=== PATIENT | female | born 1955 | race African-American/Black ===

== ENCOUNTER 2023-06-12 13:08 | Emergency (ER) | payer MEDICAID, SELFPAY ==
[2023-06-12 13:18] VITALS: BP 170/85; PULSE 67; RESP 18; TEMP 36.6; O2SAT 99; BMI 26.6
--- NOTE | 2023-06-12 13:22 | ED.GENADULT ---
HPI - General Adult General Chief complaint: Headache Stated complaint: headache high bp Time Seen by Provider: 06/12/23 19:40 Source: patient and family (Son) Mode of arrival: ambulatory History of Present Illness HPI narrative: 67-year-old female who has recently arrived the [place] states and is brought in by her son with a history of hypertension and complaint of headache for the past 3 days, not sleeping well at night. Son also states that he does not think that the blood pressure medication is working as well as previously. Otherwise, there are no complaints of slurred speech, unsteady gait, facial asymmetry or weakness on 1 side of the body. Patient denies any use of chronic anticoagulation. She does report bilateral eye blurriness but unknown last evaluation by eye doctor. Related Data Previous Rx's ?Medication ?Instructions ?Recorded amiloride 5 mg tablet 10 mg (2 x 5 mg) PO DAILY #30 tabs 06/12/23 hydrochlorothiazide 25 mg tablet 25 mg PO DAILY #30 tabs 06/12/23 Allergies Allergy/AdvReac Type Severity Reaction Status Date / Time No Known Allergies Allergy Verified 06/12/23 13:23 Review of Systems Review of Systems: Pertinent positives and negatives as stated in HPI [facility] Past Medical History Source: nursing notes reviewed Social History Social History Smoked in Last 30 Days: No Use of substances other than those prescribed or required for medical reasons: No Advance Directives: No Advance Directives Information Provided: Yes Do you have a plan to hurt others: No Plan Physical Exam ED Vital Signs: Vital Signs - 24 hr 06/12/23 20:23 06/12/23 21:22 06/12/23 23:35 Temperature 97.8 F Pulse Rate 61 61 Respiratory Rate 17 18 Blood Pressure 168/101 H 168/106 H 153/94 H Pulse Oximetry 96 96 Oxygen Delivery Method Room Air Room Air 06/13/23 02:05 Temperature 98.2 F Pulse Rate 64 Respiratory Rate 18 Blood Pressure 120/70 Pulse Oximetry 98 Oxygen Delivery Method Room Air BMI result Body Mass Index 26.6 VITAL SIGNS: Reviewed. GENERAL: Well developed, well nourished, in no acute distress. HEAD: Normocephalic/atraumatic EYES: PERRLA, EOMI EARS: Ext canals without abnormality NOSE: Nares patent bilateral OROPHARYNX: no oral lesions noted, posterior pharynx clear NECK: Supple, no adenopathy LUNGS: Normal breath sounds. No adventitious sounds or accessory muscle use. SpO2<96> CARDIOVASCULAR: Regular rate and rhythm without noted murmurs, no JVD or lower extremity edema. ABDOMEN: Soft, non-tender, non-distended with bowel sounds. MUSCULOSKELETAL: No tenderness, deformities, or effusions noted on gross inspection. EXTREMITIES: No cyanosis, clubbing or edema. SKIN: Inspection of the skin reveals no rashes NEUROLOGIC: Alert and oriented x 4. Strength and sensation to light touch were grossly intact x 4, no facial asymmetry, no pronator drift, cranial nerves 2-12 are grossly intact. Course Course Course Narrative: RME performed by Mary Junior PA-C. Patient is a 67 year old assigned female at presenting to the emergency department with a headache and leg pain. Patient states that over the last few days she has had a headache and leg pain. Patient requesting HIV testing. Detailed physical exam and review of systems are deferred to the associate director of sales. Labs and swabs ordered. Patient placed back in the waiting room pending room availability and results. Reevaluation(s) Reevaluation #1: BP normal K 3.3 stable for DC Medications Administered Discontinued Medications Generic Name Dose Route Start Last Admin Trade Name Freq PRN Reason Stop Dose Admin Acetaminophen 975 mg 06/12/23 20:26 06/12/23 21:22 Acetaminophen 325 Mg Tablet PO 06/12/23 20:27 975 mg ONCE ONE Administration Amlodipine Besylate 5 mg 06/12/23 20:26 06/12/23 21:22 Amlodipine Besylate 5 Mg Tablet PO 06/12/23 20:27 5 mg ONCE ONE Administration Protocol Potassium Chloride 10 meq in 100 mls @ 100 mls/hr 06/12/23 19:45 06/13/23 00:30 Potassium Chloride/H20 IV 06/12/23 23:44 Infused Q1H KATHERYN Infusion Ibuprofen 400 mg 06/12/23 20:26 06/12/23 21:21 Ibuprofen 400 Mg Tablet PO 06/12/23 20:27 400 mg ONCE ONE Administration Potassium Chloride 60 meq 06/12/23 21:30 06/12/23 22:28 Potassium Chloride Packet 20 Meq Packet PO 06/12/23 21:31 60 meq ONCE ONE Administration Medical Decision Making Medical Decision Making MDM Narrative: 67-year-old female with history and clinical presentation, DDX: Generalized headache, no focal findings, no concern for intracranial hemorrhage, blood pressure noted to be elevated but suspect may be secondary to change in dietary access to sodium, patient does take amiloride and hydrochlorothiazide for her blood pressure. I reviewed all investigations and hematologic indices are negative for leukocytosis/anemia/thrombocytopenia. Chemistry indices are negative for SHEA but there is a noted low potassium-2.4 which will be repleted with 40 mEq via IV and 60 mEq orally as well as additional Norvasc for blood pressure control. Liver enzymes are within normal limits. I sensitivity troponin is detectable but not elevated and patient has no complaints of chest pain. Urinalysis is negative for UTI or hematuria. Viral illnesses negative for influenza/RSV/COVID-19. I have signed this patient out to Dr. Watts - follow-up BMP after potassium repletion. Differential Diagnosis Differential Diagnoses: The differential diagnosis associated with the presentation includes Please see the discussion above Admission/Observation Consideration of admission/observation: Escalation of care including admission/observation considered Please see the discussion above Lab Data [facility] Lab Attestation statement: I reviewed the patient's lab results. Please see the discussion above 06/12/23 14:09 06/13/23 00:48 Labs: Lab Results 06/12/23 06/12/23 06/13/23 Range/Units 14:09 14:15 00:48 WBC 5.2 (4.8-10.8) X10*3/uL RBC 4.80 (4.20-5.50) X10*6/uL Hgb 14.0 (12.0-16.0) g/dl Hct 40.4 (37.0-47.0) % MCV 84.2 (80.0-98.0) fL MCH 29.2 (27.0-33.0) pg MCHC 34.7 (31.0-35.0) g/dl RDW 12.4 (11.0-16.0) % Plt Count 216 (160-400) X10*3/uL MPV 10.7 (9.4-12.3) fL Immature Gran % (Auto) 0.2 (0.0-0.4) % Neut % (Auto) 28.9 L (45-73) % Lymph % (Auto) 61.1 H (20-40) % Foster % (Auto) 8.0 (2-11) % Eos % (Auto) 1.0 (0-4) % Baso % (Auto) 0.8 (0-2) % Lymph # (Auto) 3.2 (1.2-4.9) X10*3/uL Foster # (Auto) 0.4 (0.1-1.2) X10*3/uL Eos # (Auto) 0.1 (0.0-0.4) X10*3/uL Baso # (Auto) 0.0 (0.0-0.2) X10*3/uL Abs Immat Gran (auto) 0.01 (0.00-0.03) X10*3/uL Absolute Neuts (auto) 1.5 L (2.0-8.3) x10*3/uL Absolute Nucleated RBC 0.000 (0.0-0.012) X10*3/uL Nucleated RBC % (auto) 0.0 (0.0-0.2) /100WBC Smear Tech's Comments VERIFIED Sodium 140 (135-145) mmol/L Potassium 2.4 L* 3.3 D (3.3-5.1) mmol/L Chloride 99 (96-108) mmol/L Carbon Dioxide 30 H (22-29) mmol/L Anion Gap 13 (12-20) BUN 15 (9-16) mg/dL Creatinine 0.93 (0.5-1.4) mg/dL Estim Creat Clear Calc 67.1 Estimated GFR > 60 Random Glucose 130 H (60-115) mg/dL Calcium 11.0 H (8.4-10.2) mg/dL Magnesium 1.8 (1.6-2.6) mg/dL Total Bilirubin 0.9 (0.0-1.0) mg/dL AST 21 (5-31) U/L ALT 21 (0-31) U/L Alkaline Phosphatase 69 (39-117) U/L Troponin I High Sens 3.0 (<3.5-17.0) ng/L Total Protein 8.6 H (6.5-8.0) g/dL Albumin 4.6 (3.5-5.0) g/dL Urine Color Yellow Urine Appearance Clear Urine pH 7.0 (5.0-9.0) Ur Specific [place] <= 1.005 (1.005-1.025) Urine Protein Negative (Neg-Trace) mg/dL Urine Glucose (UA) Negative (Negative) mg/dL Urine Ketones Negative (Negative) mg/dL Urine Blood Negative (Negative) Urine Nitrite Negative (Negative) Ur Leukocyte Esterase Negative (Negative) HIV 1&2 Ab/P24 Ag 4thGn Reactive H (Nonreactive) Influenza Type A (PCR) NEGATIVE (Negative) Influenza Type B (PCR) NEGATIVE (Negative) RSV RNA Qual (PCR) NEGATIVE (Negative) SARS-CoV-2 RNA (RT-PCR) NEGATIVE (Negative) Independent Interpretation I performed an independent interpretation of an: EKG Interpretation: Normal sinus rhythm, HR-66, no STEMI, suspect LVH, CT/QRS/QTC is within normal limits. Chronic Conditions Patient?s care impacted by: Hypertension Critical Care Time Critical Care Time Critical Care Time: Yes Total Critical Care Time: 45 Attestation: I personally attest to this time spent taking care of the patient. Discharge Plan Discharge Clinical Impression: Headache, Hypertension, Hypokalemia Patient Disposition: Home, Self-Care Instructions: Potassium Content of Foods List (ED), Hypokalemia (ED), Low-Sodium Diet (ED), Hypertension (ED), General Headache (ED) Additional Instructions: Your blood pressure medication has been modified, you should follow-up with a primary care doctor in the next 3-4 days. Prescriptions: New amiloride 5 mg tablet 10 mg PO DAILY Qty: 30 0RF hydrochlorothiazide 25 mg tablet 25 mg PO DAILY Qty: 30 0RF Interventions: ED Discharge Assessment Last Done: 06/13/23 02:05 Discharge Date/Time: 06/13/23 01:27 Print Language: Pakistani
--- NOTE | 2023-06-12 13:25 | ECG_ITS ---
Test Reason : WEAKNESS Blood Pressure : / mmHG Vent. Rate : 066 BPM Atrial Rate : 066 BPM P-R Int : 188 ms QRS Dur : 078 ms QT Int : 378 ms P-R-T Axes : 058 -22 -20 degrees QTc Int : 396 ms Normal sinus rhythm Minimal voltage criteria for LVH, may be normal variant ( R in aVL ) T wave abnormality, consider anterior ischemia Abnormal ECG No previous ECGs available Referred By: Mary Junior Electronically Signed By:Jerzy Sebastian
[2023-06-12 14:21] LABS: Basophils Percent Auto 0.8 % (0-2); Eosinophils Absolute Auto 0.1 X10*3/uL (0.0-0.4); Hematocrit 40.4 % (37.0-47.0); Imm Gran Abs Auto 0.01 X10*3/uL (0.00-0.03); Imm Gran Pct Auto 0.2 % (0.0-0.4); Lymphocytes Absolute Auto 3.2 X10*3/uL (1.2-4.9); Lymphocytes Percent Auto 61.1 % (20-40); MANUAL DIFF FLAG SCAN; Mean Corpuscular HGB Conc 34.7 g/dl (31.0-35.0); Mean Corpuscular Hemoglobin 29.2 pg (27.0-33.0); Mean Corpuscular Volume 84.2 fL (80.0-98.0); Mean Platelet Volume 10.7 fL (9.4-12.3); Monocytes Absolute Auto 0.4 X10*3/uL (0.1-1.2); Neutrophils Absolute Auto 1.5 x10*3/uL (2.0-8.3); Neutrophils Percent Auto 28.9 % (45-73); Platelet Count 216 X10*3/uL (160-400); Red Cell Distribution Width 12.4 % (11.0-16.0); SCAN SMEAR FLAG 1; White Blood Count 5.2 X10*3/uL (4.8-10.8)
[2023-06-12 14:22] LABS: Appearance Urine Clear; Color Urine Yellow; Glucose Urine UA Negative (Negative); Leukocyte Esterase Urine Negative (Negative); Nitrite Urine Negative (Negative); Specific Gravity - Urine <= 1.005 (1.005-1.025); Urine Blood Negative (Negative); Urine Ketones Negative (Negative); Urine Protein Negative (Neg-Trace)
[2023-06-12 14:40] LABS: Alanine Aminotransferase 21 U/L (0-31); Albumin Level 4.6 g/dL (3.5-5.0); Alkaline Phosphatase 69 U/L (39-117); Anion Gap 13 (12-20); Aspartate Amino Transferase 21 U/L (5-31); Bilirubin Total 0.9 mg/dL (0.0-1.0); Blood Urea Nitrogen 15 mg/dL (9-16); Carbon Dioxide 30 mmol/L (22-29); Chloride 99 mmol/L (96-108); Creatinine Clr Calc Pharmacy 67.1; Estimated Glomerular Filt Rate > 60; Glucose Random 130 mg/dL (60-115); Magnesium 1.8 mg/dL (1.6-2.6); Potassium 2.4 mmol/L (3.3-5.1); Sodium 140 mmol/L (135-145); Total Protein 8.6 g/dL (6.5-8.0)
[2023-06-12 14:50] LABS: SLIDE REVIEW VERIFIED
[2023-06-12 15:14] LABS: Influenza A PCR NEGATIVE (Negative); Influenza B PCR NEGATIVE (Negative); Resp Syncy Virus RNA Qual PCR NEGATIVE (Negative); SARS COV2 PCR INHOUSE NEGATIVE (Negative)
[2023-06-12] MEDS: Potassium Chloride/H20 10 MEQ/100 ML PIGGYBACK 100 MEQ IV ×4 (20:19→23:30)
[2023-06-12 20:23] VITALS: BP 168/101; PULSE 61; RESP 17; TEMP 36.6; O2SAT 96
--- NOTE | 2023-06-12 20:40 | PC.NURSE ---
pt from home, a&ox4, respirations even and unlabored, reporting chronic headache. pt son at bedside reports pt has had hx of high blood pressure and thinks this may be the cause. pt reports taking htn medications. 20G placed in left forearm, IV medications running, pt sinus filiberto on tele 58-60bpm.
[2023-06-12] MEDS: Ibuprofen 400 MG TABLET PO (21:21)
[2023-06-12 21:22] VITALS: BP 168/106
[2023-06-12] MEDS: Acetaminophen 325 MG TABLET 975 MG PO (21:22)
[2023-06-12] MEDS: amLODIPine Besylate 5 MG TABLET PO (21:22)
--- NOTE | 2023-06-12 21:31 | PC.NURSE ---
pt medicated per mar, tolerated well with water.
[2023-06-12] MEDS: Potassium Chloride Packet 20 MEQ PACKET 60 MEQ PO (22:28)
[2023-06-12 23:35] VITALS: BP 153/94; PULSE 61; RESP 18; O2SAT 96
[2023-06-13 01:07] LABS: Potassium 3.3 mmol/L (3.3-5.1)
[2023-06-13 02:05] VITALS: BP 120/70; PULSE 64; RESP 18; TEMP 36.8; O2SAT 98
[2023-06-13 13:29] LABS: HIV AB/AG Reactive (Nonreactive)
[2023-06-19 12:17] LABS: HIV 2 Antibody NEGATIVE
[2023-06-19 12:18] LABS: HIV 1 Antibody POSITIVE (Abnormal)
== END 2023-06-13 01:27 | disposition home or self-care (01) ==
PROVIDERS: Physician Assistant Medical; Emergency Provider Emergency Medicine
DX: R51.9 Headache, unspecified (principal); E87.6 Hypokalemia; I10 Essential (primary) hypertension; M79.606 Pain in leg, unspecified; R53.1 Weakness; Z79.899 Other long term (current) drug therapy; Z03.818 Encounter for observation for suspected exposure to other biological agents ruled out
CPT/HCPCS: 0241U; 36415; 80053; 81003; 83735; 84132; 84484; 85025; 86701; 86702; 87389; 93005; 96365; 96366; 99285; J3480

== ENCOUNTER → 2023-06-12 13:25 | Outpatient (BNV) | payer MEDICAID, SELFPAY | PROVIDERS: Emergency Provider Emergency Medicine; Visit Provider Internal Medicine Cardiovascular Disease | DX: R94.31 Abnormal electrocardiogram [ECG] [EKG] (principal) | CPT/HCPCS: 93010 ==

== ENCOUNTER 2023-06-16 11:07 | Outpatient (REF) | payer MEDICAID, SELFPAY ==
[2023-06-16 13:03] LABS: MANUAL DIFF FLAG NO
[2023-06-16 13:20] LABS: Basophils Percent Auto 0.4 % (0-2); Eosinophils Absolute Auto 0.1 X10*3/uL (0.0-0.4); Eosinophils Percent Auto 1.1 % (0-4); Hemoglobin 14.3 g/dl (12.0-16.0); Imm Gran Abs Auto 0.01 X10*3/uL (0.00-0.03); Imm Gran Pct Auto 0.2 % (0.0-0.4); Lymphocytes Absolute Auto 2.4 X10*3/uL (1.2-4.9); Lymphocytes Percent Auto 50.4 % (20-40); Mean Corpuscular Hemoglobin 29.1 pg (27.0-33.0); Mean Corpuscular Volume 85.4 fL (80.0-98.0); Mean Platelet Volume 11.2 fL (9.4-12.3); Monocytes Absolute Auto 0.4 X10*3/uL (0.1-1.2); Neutrophils Absolute Auto 1.9 x10*3/uL (2.0-8.3); Neutrophils Percent Auto 38.9 % (45-73); Platelet Count 201 X10*3/uL (160-400); Red Blood Count 4.92 X10*6/uL (4.20-5.50); Red Cell Distribution Width 12.5 % (11.0-16.0); White Blood Count 4.8 X10*3/uL (4.8-10.8)
[2023-06-16 13:59] LABS: Alanine Aminotransferase 22 U/L (0-31); Albumin Level 4.7 g/dL (3.5-5.0); Alkaline Phosphatase 75 U/L (39-117); Anion Gap 15 (12-20); Aspartate Amino Transferase 21 U/L (5-31); Blood Urea Nitrogen 15 mg/dL (9-16); Calcium 10.6 mg/dL (8.4-10.2); Carbon Dioxide 30 mmol/L (22-29); Chloride 97 mmol/L (96-108); Estimated Glomerular Filt Rate > 60; Glucose Random 100 mg/dL (60-115); Potassium 3.1 mmol/L (3.3-5.1); Sodium 139 mmol/L (135-145); Total Protein 8.7 g/dL (6.5-8.0)
[2023-06-18 19:38] LABS: TS Negative Control Passed; TS Panel A 0; TS Panel B 0; TS Positive Control Passed; TSpotTB Negative (Negative)
[2023-06-19 08:36] LABS: HBS Num1 30.37 mIU/mL (0-7.99); HBc Num1 3.72 S/CO (0.00-0.79); HBsAGNum1 0.27 S/CO (0.00-0.99); Hepatitis B Surface Antigen Negative (Negative); ~HepC Num1 0.26 S/CO (0.00-0.79); ~Hepatitis B Surface Antibody REACTIVE (Nonreactive); ~Hepatitis C Antibody Nonreactive (Nonreactive)
[2023-06-19 08:49] LABS: Absolute CD3 Count 1918 cells/uL (840-3060); Absolute CD4 Count 859 cells/uL (490-1740); Absolute CD8 Count 992 cells/uL (180-1170); Absolute Lymphocytes 2635 cells/uL (850-3900); CD4 CD8 Ratio 0.87 (0.86-5.00); Percent CD3 Cells 73 % (57-85); Percent CD4 Cells 33 % (30-61); Percent CD8 Cells 38 % (12-42)
[2023-06-19 09:03] LABS: Hepatitis A Antibody IgG REACTIVE (Nonreactive); ~Hepatitis A Antibody IgG 9.22 S/CO (0.00-0.99)
[2023-06-19 09:30] LABS: HBc Num3 3.72 S/CO; Hepatitis B Core Antibody Reactive (Nonreactive)
[2023-06-19 19:23] LABS: Rubeola IgG (Measles) >300.00 AU/mL
[2023-06-21 16:28] LABS: HIV RNA PCR Qn Copies Not Detected Copies/mL; HIV RNA PCR Qn Log Copies Not Detected Log cps/mL
[2023-06-23 10:38] LABS: HLA B 5701 Negative
[2023-06-23 16:39] LABS: Glucose-6-Phosphate Dehydrogen 4.5 U/g Hgb (7.0-20.5)
== END 2023-06-16 11:08 | disposition home or self-care (01) ==
LOC: HO.HHCL 11:07
PROVIDERS: Visit Provider Internal Medicine
DX: B20 Human immunodeficiency virus [HIV] disease (principal)
CPT/HCPCS: 36415; 80053; 81381; 82955; 85025; 86359; 86360; 86481; 86704; 86706; 86708; 86735; 86762; 86765; 86803; 87340; 87536; 87900

== ENCOUNTER 2023-12-05 14:34 | Outpatient (REF) | payer MEDICAID, SELFPAY ==
[2023-12-05 17:17] LABS: Anion Gap 13 (12-20); Blood Urea Nitrogen 11 mg/dL (9-16); Calcium 10.1 mg/dL (8.4-10.2); Carbon Dioxide 30 mmol/L (22-29); Chloride 100 mmol/L (96-108); Estimated Glomerular Filt Rate 57; Glucose Random 139 mg/dL (60-115); Sodium 140 mmol/L (135-145)
[2023-12-05 17:35] LABS: Potassium 2.8 mmol/L (3.3-5.1)
== END 2023-12-05 14:35 | disposition home or self-care (01) ==
LOC: HO.HHCL 14:34
PROVIDERS: Visit Provider Family Medicine
DX: E87.6 Hypokalemia (principal)
CPT/HCPCS: 36415; 80048

== ENCOUNTER 2023-12-07 09:31 | Outpatient (REF) | payer MEDICAID, SELFPAY ==
[2023-12-07 11:24] LABS: Estimated Average Glucose 163 mg/dL; Hemoglobin A1C 201.3479 umol/L; Hemoglobin A1c % 7.3 % (<6.0); Total Hemoglobin (HGBA1C) 3599.3412 umol/L
[2023-12-07 11:37] LABS: Anion Gap 11 (12-20); Blood Urea Nitrogen 5 mg/dL (9-16); Calcium 9.6 mg/dL (8.4-10.2); Carbon Dioxide 30 mmol/L (22-29); Chloride 101 mmol/L (96-108); Estimated Glomerular Filt Rate > 60; Glucose Random 164 mg/dL (60-115); Potassium 3.2 mmol/L (3.3-5.1); Sodium 139 mmol/L (135-145)
== END 2023-12-07 09:32 | disposition home or self-care (01) ==
LOC: HO.HHCL 09:31
PROVIDERS: Visit Provider Nurse Practitioner Primary Care
DX: E87.6 Hypokalemia (principal); R73.09 Other abnormal glucose
CPT/HCPCS: 36415; 80048; 83036; 83735

== ENCOUNTER 2023-12-19 12:53 | Outpatient (REF) | payer MEDICAID, SELFPAY ==
[2023-12-19 16:34] LABS: Anion Gap 16 (12-20); Blood Urea Nitrogen 7 mg/dL (9-16); Carbon Dioxide 27 mmol/L (22-29); Chloride 101 mmol/L (96-108); Estimated Glomerular Filt Rate > 60; Glucose Random 102 mg/dL (60-115); Potassium 3.1 mmol/L (3.3-5.1); Sodium 141 mmol/L (135-145)
== END 2023-12-19 12:54 | disposition home or self-care (01) ==
LOC: HO.HHCL 12:53
PROVIDERS: Visit Provider Nurse Practitioner Primary Care
DX: E87.6 Hypokalemia (principal)
CPT/HCPCS: 36415; 80048

== ENCOUNTER 2024-01-18 10:25 | Outpatient (REF) | payer MEDICAID, SELFPAY ==
[2024-01-18 11:48] LABS: Estimated Average Glucose 120 mg/dL; Hemoglobin A1C 140.4307 umol/L; Hemoglobin A1c % 5.8 % (<6.0); Total Hemoglobin (HGBA1C) 3506.0513 umol/L
[2024-01-18 11:49] LABS: Cholesterol 172 mg/dL (<200); HDL Cholesterol 58 mg/dL (>40); LDL Cholesterol Calculated 96 mg/dL (<100); Magnesium 2.1 mg/dL (1.6-2.6); Triglycerides 90 mg/dL (<150)
[2024-01-18 12:05] LABS: Alanine Aminotransferase 18 U/L (0-31); Albumin Level 4.5 g/dL (3.5-5.0); Alkaline Phosphatase 67 U/L (39-117); Anion Gap 10 (12-20); Aspartate Amino Transferase 21 U/L (5-31); Blood Urea Nitrogen 13 mg/dL (9-16); Carbon Dioxide 32 mmol/L (22-29); Chloride 104 mmol/L (96-108); Estimated Glomerular Filt Rate > 60; Glucose Random 108 mg/dL (60-115); Sodium 143 mmol/L (135-145); Total Protein 7.9 g/dL (6.5-8.0)
[2024-01-18 12:06] LABS: Syphilis Screen Nonreactive (Nonreactive)
[2024-01-18 12:08] LABS: Potassium 2.9 mmol/L (3.3-5.1)
[2024-01-18 12:09] LABS: TSH reflex Free T4 1.22 uIU/mL (0.32-4.0)
[2024-01-19 19:14] LABS: HIV RNA PCR Qn Copies NOT DETECTED copies/mL (NOT DETECTED); HIV RNA PCR Qn Log Copies NOT DETECTED (NOT DETECTED)
[2024-01-24 11:37] LABS: Hepatitis D RNA PCR NOT DETECTED Log IU/mL; Hepatitis D RNA RT PCR NOT DETECTED
[2024-01-24 16:13] LABS: Absolute CD3 Count 1724 cells/uL (840-3060); Absolute CD4 Count 736 cells/uL (490-1740); Absolute CD8 Count 999 cells/uL (180-1170); Absolute Lymphocytes 2302 cells/uL (850-3900); CD4 CD8 Ratio 0.74 (0.86-5.00); Percent CD3 Cells 75 % (57-85); Percent CD4 Cells 32 % (30-61); Percent CD8 Cells 43 % (12-42)
== END 2024-01-18 10:26 | disposition home or self-care (01) ==
LOC: HO.HHCL 10:25
PROVIDERS: Emergency Medicine; Internal Medicine; Visit Provider Internal Medicine
DX: E87.6 Hypokalemia (principal); I10 Essential (primary) hypertension; Z21 Asymptomatic human immunodeficiency virus [HIV] infection status
CPT/HCPCS: 36415; 80053; 80061; 83036; 83735; 84443; 86359; 86360; 86780; 87523; 87536

== ENCOUNTER 2024-02-13 11:39 | Outpatient (REF) | payer MEDICAID, SELFPAY ==
[2024-02-13 14:12] LABS: Magnesium 2.1 mg/dL (1.6-2.6); Potassium 2.9 mmol/L (3.3-5.1)
== END 2024-02-13 11:40 | disposition home or self-care (01) ==
LOC: HO.HHCL 11:39
PROVIDERS: Visit Provider Internal Medicine
DX: E87.6 Hypokalemia (principal)
CPT/HCPCS: 36415; 83735; 84132

== ENCOUNTER 2024-02-23 09:46 | Outpatient (REF) | payer MEDICAID, SELFPAY ==
[2024-02-23 11:44] LABS: Anion Gap 15 (12-20); Blood Urea Nitrogen 13 mg/dL (9-16); Calcium 9.7 mg/dL (8.4-10.2); Carbon Dioxide 23 mmol/L (22-29); Chloride 107 mmol/L (96-108); Estimated Glomerular Filt Rate > 60; Glucose Random 70 mg/dL (60-115); Potassium 3.4 mmol/L (3.3-5.1); Potassium 3.5 mmol/L (3.3-5.1); Sodium 142 mmol/L (135-145)
== END 2024-02-23 09:47 | disposition home or self-care (01) ==
LOC: HO.HHCL 09:46
PROVIDERS: Internal Medicine; Visit Provider Internal Medicine
DX: E87.6 Hypokalemia (principal)
CPT/HCPCS: 36415; 80048; 84132

== ENCOUNTER 2024-04-17 08:43 | Outpatient (REF) | payer MEDICAID, SELFPAY ==
--- OUTSIDE RECORDS SUMMARY | 2024-04-17 09:16 | XMS_ITS | Clinical Summary ---
Author Organization [facility] [address] [place] [address] Phone Care Team Providers Care Certified Scrum Master Name Role Phone Mariaa Stevenson MD Primary Care Provide r Social History Tobacco Use Types Packs/Day Years Used Date Smoking Tobacco: Never Assessed Comments Unknown Sex and Gender Information Value Date Recorded Sex Assigned at Not on file Legal Sex Female 2:57 PM EST Gender Identity Not on file Sexual Orientation Not on file Plan of Treatment Upcoming Encounters Date Type Department Care Team (Late st Contact Info) Description 04/29/2024 4:00 PM EDT Office Visit [facility] [address] [place] [address] Roni Guerra MD [address] [facility] [address] [place] [address] Health Maintenance Due Date Last Done Comments Breast Cancer Screening 1955 Colorectal Cancer Screening: Annual FOBT 07/22/2004 Colorectal Cancer Screening: Colonoscopy 07/22/2004 Colorectal Cancer Screening: Sigmoidoscopy 07/22/2004 Pneumococcal Vaccine: 65+ Ye ars (1 of 1 - PCV) 07/22/2020 Influenza Vaccine (#1) 2023 Hepatitis B Vaccine Aged Out No longe r eligible based on patient's age to complete this topic Insurance Ashley Ramesh [place] [facility] [place] [facility] [place] [address] [place] Care Teams Certified Scrum Master Relationship Specialty Start Date End Date Mariaa Stevenson MD [address] [place] [id number] PCP - General Internal Medicine 02/19/24
[2024-04-17 12:41] LABS: Alanine Aminotransferase 21 U/L (0-31); Albumin Level 4.4 g/dL (3.5-5.0); Alkaline Phosphatase 90 U/L (39-117); Aspartate Amino Transferase 27 U/L (5-31); Bilirubin Direct 0.5 mg/dL (0.0-0.5); Bilirubin Total 1.9 mg/dL (0.0-1.0); Cholesterol 115 mg/dL (<200); HDL Cholesterol 53 mg/dL (>40); LDL Cholesterol Calculated 48 mg/dL (<100); Total Protein 8.1 g/dL (6.5-8.0); Triglycerides 73 mg/dL (<150)
== END 2024-04-17 08:44 | disposition home or self-care (01) ==
LOC: HO.HHCL 08:43
PROVIDERS: Internal Medicine; Visit Provider Internal Medicine
DX: E87.6 Hypokalemia (principal); E11.9 Type 2 diabetes mellitus without complications
CPT/HCPCS: 36415; 80061; 80076; 82550; 84132

== ENCOUNTER 2024-05-16 10:38 | Outpatient (REF) | payer MEDICAID, SELFPAY ==
[2024-05-16 11:45] LABS: MANUAL DIFF FLAG NO
[2024-05-16 12:05] LABS: Basophils Percent Auto 0.4 % (0-2); Eosinophils Absolute Auto 0.1 X10*3/uL (0.0-0.4); Eosinophils Percent Auto 1.8 % (0-4); Hematocrit 40.3 % (37.0-47.0); Hemoglobin 13.4 g/dl (12.0-16.0); Lymphocytes Absolute Auto 2.2 X10*3/uL (1.2-4.9); Lymphocytes Percent Auto 49.6 % (20-40); Mean Corpuscular HGB Conc 33.3 g/dl (31.0-35.0); Mean Corpuscular Hemoglobin 28.9 pg (27.0-33.0); Mean Corpuscular Volume 86.9 fL (80.0-98.0); Mean Platelet Volume 11.9 fL (9.4-12.3); Monocytes Absolute Auto 0.3 X10*3/uL (0.1-1.2); Monocytes Percent Auto 7.4 % (2-11); Neutrophils Absolute Auto 1.8 x10*3/uL (2.0-8.3); Neutrophils Percent Auto 40.8 % (45-73); Platelet Count 190 X10*3/uL (160-400); Red Blood Count 4.64 X10*6/uL (4.20-5.50); Red Cell Distribution Width 12.7 % (11.0-16.0); White Blood Count 4.5 X10*3/uL (4.8-10.8)
[2024-05-16 12:20] LABS: Alanine Aminotransferase 17 U/L (0-31); Albumin Level 4.5 g/dL (3.5-5.0); Alkaline Phosphatase 94 U/L (39-117); Anion Gap 11 (12-20); Aspartate Amino Transferase 22 U/L (5-31); Bilirubin Total 1.6 mg/dL (0.0-1.0); Blood Urea Nitrogen 8 mg/dL (9-16); Calcium 9.3 mg/dL (8.4-10.2); Carbon Dioxide 29 mmol/L (22-29); Chloride 107 mmol/L (96-108); Estimated Glomerular Filt Rate > 60; Glucose Random 109 mg/dL (60-115); Potassium 2.9 mmol/L (3.3-5.1); Sodium 144 mmol/L (135-145); Total Protein 7.6 g/dL (6.5-8.0)
[2024-05-16 12:45] LABS: ~Hepatitis C Antibody Nonreactive (Nonreactive)
[2024-05-16 16:36] LABS: CT PCR NOT DETECTED (Not Detect.); NG PCR NOT DETECTED (Not Detect.)
[2024-05-17 14:57] LABS: HIV RNA PCR Qn Copies NOT DETECTED copies/mL (NOT DETECTED); HIV RNA PCR Qn Log Copies NOT DETECTED (NOT DETECTED)
[2024-05-19 14:24] LABS: TS Negative Control Passed; TS Panel A 0; TS Panel B 1; TS Positive Control Passed; TSpotTB Negative (Negative)
[2024-05-21 12:43] LABS: Absolute CD3 Count 1723 cells/uL (840-3060); Absolute CD4 Count 729 cells/uL (490-1740); Absolute CD8 Count 892 cells/uL (180-1170); Absolute Lymphocytes 2325 cells/uL (850-3900); CD4 CD8 Ratio 0.82 (0.86-5.00); Percent CD3 Cells 74 % (57-85); Percent CD4 Cells 31 % (30-61); Percent CD8 Cells 38 % (12-42)
== END 2024-05-16 10:39 | disposition home or self-care (01) ==
LOC: HO.HHCL 10:38
PROVIDERS: Internal Medicine; Visit Provider Internal Medicine
DX: Z21 Asymptomatic human immunodeficiency virus [HIV] infection status (principal)
CPT/HCPCS: 36415; 80053; 85025; 86359; 86360; 86481; 86803; 87491; 87536; 87591

== ENCOUNTER 2024-06-10 10:14 | Outpatient (REF) | payer MEDICAID, SELFPAY ==
[2024-06-10 11:47] LABS: Anion Gap 12 (12-20); Blood Urea Nitrogen 11 mg/dL (9-16); Calcium 9.4 mg/dL (8.4-10.2); Carbon Dioxide 29 mmol/L (22-29); Chloride 104 mmol/L (96-108); Estimated Glomerular Filt Rate > 60; Glucose Random 115 mg/dL (60-115); Sodium 142 mmol/L (135-145)
[2024-06-10 12:59] LABS: Creatinine Urine 242.51 mg/dL; Microalbum/Creatinine Ratio Ur 24.7 ug/mg cr (<30)
== END 2024-06-10 10:15 | disposition home or self-care (01) ==
LOC: HO.HHCL 10:14
PROVIDERS: Internal Medicine; Visit Provider Nurse Practitioner Primary Care
DX: E87.6 Hypokalemia (principal)
CPT/HCPCS: 36415; 80048; 82043; 82570

== ENCOUNTER 2024-06-17 10:39 | Outpatient (REF) | payer MEDICAID, SELFPAY ==
[2024-06-17 12:01] LABS: Potassium 2.9 mmol/L (3.3-5.1)
[2024-06-17 12:24] LABS: Erythrocyte Sedimentation Rate 8 MM/HR (0-20)
== END 2024-06-17 10:40 | disposition home or self-care (01) ==
LOC: HO.HHCL 10:39
PROVIDERS: Internal Medicine; Visit Provider Family Medicine
DX: G89.29 Other chronic pain (principal); E87.6 Hypokalemia; R51.9 Headache, unspecified
CPT/HCPCS: 36415; 84132; 85652

== ENCOUNTER 2024-06-19 11:56 | Outpatient (AMB) | payer MEDICAID, SELFPAY ==
[2024-06-19 12:01] VITALS: BP 134/78; PULSE 71; BMI 21.7
--- NOTE | 2024-06-19 12:01 | MHC.OFFVIS ---
Vital Signs 06/19/24 12:01 Height 5 ft 9 in Weight 147 lb BMI 21.7 BP 134/78 Blood Pressure Location Lt brachial Position Sitting Pulse 71 Pulse Source Pulse Oximeter Intake Visit Reasons: follow up per NS Superintendent Communications Required: Yes Superintendent Communications Services: Superintendent Communications Offered & Declined Accompanied by: Daughter Allergies No Known Allergies Allergy (Verified 06/12/23 13:23) Medication List - Last Reconciled 06/19/24 by Tristan Ramirez NP amlodipine-olmesartan 5-20 mg 1 tab PO DAILY amlodipine-olmesartan 5-40 mg 1 tab PO DAILY atorvastatin 20 mg PO DAILY carvedilol 6.25 mg PO BID HPI Comments Details: This is a 68-year-old female patient presenting for a consultation regarding uncontrolled hypertension. She is accompanied by her daughter who assisted with the interpretation during this visit. The patient was previously scheduled for evaluation here in this office but had to reschedule due to interpretation limitations and not knowing what medications patient was on at that time. The patient has a known history of uncontrolled hypertension and was previously on amlodipine/olmesartan 5-20 mg. With her PCP about 3 months ago, increased her dose to 5-40mg. Patient was also started on carvedilol at that time. However, patient reports that she continued taking both the 5-20mg and the 5-40 mg together. Today, the patient reports experiencing intermittent chest pain at rest for the past several months. The pain is nonexertional and sometimes accompanied by mild shortness of breath. She denies any exertional chest pain, palpitations, dizziness, orthopnea, PND, leg edema, presyncope, or syncope. Review of Systems Const Denies weakness ENT Denies dizziness Card Denies chest pain, Denies chest pain with activity, Denies syncope, Denies rapid heart rate, Denies pedal edema, Denies edema, Denies leg edema, Denies lightheadedness, Denies palpitations, Denies dyspnea, Denies dyspnea on exertion and Denies orthopnea Resp Denies cough, Denies dyspnea and Denies dyspnea on exertion GI Denies hematochezia and Denies change in stool character Musc Denies abnormal gait, Denies muscle cramps, Denies muscle weakness, Denies numbness, Denies radiating pain into limb and Denies tingling Neuro Denies abnormal gait, Denies dizziness, Denies syncope, Denies numbness, Denies tingling and Denies weakness Endo Denies palpitations Physical Exam Vital Signs: Last Vital Signs Pulse 71 06/19/24 12:01 BP 140/68 H 06/19/24 12:01 BMI result Body Mass Index 21.7 Const General: cooperative, healthy appearing, comfortable and no acute distress Orientation/consciousness: patient oriented x3 HEENT Head: Yes normal to inspection Neck Neck: Yes normal visual inspection, Yes trachea midline and Yes supple Chest Chest palpation & inspection: normal inspection of the chest Resp Effort & Inspection: normal respiratory effort Auscultation: clear to auscultation bilaterally, no crackles, no rales, no rhonchi and no wheezes Cardio Jugular venous distension: no JVD Palpation: normal PMI Rate: regular rate Rhythm: regular rhythm Heart sounds: S1 normal heart sound present, S2 normal heart sound present, no click, no gallops, no murmurs and no rubs Peripheral pulses: Peripheral pulses 2+ throughout GI Inspection: Yes normal to inspection Palpation (GI): Soft to palpation Auscultation: normal bowel sounds Skin General skin exam: no rashes or lesions noted Neuro General: patient oriented x3 Extrem General: Yes normal to inspection, No no pedal edema and No calf tenderness Psych Appearance: grossly normal Mental Status: mental status grossly normal Speech and movement: Normal speech and movement present Assessment & Plan Assessment & Plan (1) Chest pain: Code(s): R07.9 - Chest pain, unspecified Category: Medical (2) Hypertension: Code(s): I10 - Essential (primary) hypertension Category: Medical Plan 06/13/2024-EKG showed normal sinus rhythm, rate 68 beats per minute, nonspecific T-wave abnormality, normal MD, corrected QT. Patient's blood pressure today is well-controlled. She also provided her home BP logs over the past few days showing consistent readings in the 130s/70s range. These were taken while she was unknowingly taking both formulations of amlodipine-olmesartan. We will discontinue both prior formulations and start patient on amlodipine-olmesartan at 10-40 mg daily. We will check labs periodically. We will bring patient in for a blood pressure nurse visit in 1 month. Advised continue monitoring blood pressures at home with a goal of less than 130/80. Advised low-sodium diet, regular physical activity, and medication adherence. Given her history of chronic uncontrolled hypertension and current symptoms of chest pain, further cardiac evaluation is warranted. Therefore, we will order a echocardiogram to assess LV dysfunction and wall motion abnormalities. We will also schedule patient for a myocardial perfusion study to look for ischemic changes. Due to her inability to walk on the treadmill from leg issues, we will pursue Lexiscan. Patient is on atorvastatin 20 mg daily. Ideally, LDL goal should be closer to 70s. Patient reports history of diabetes previously on metformin now diet controlled. Ideally, A1c goal less than 7%. Advised heart healthy diet, regular exercise, med compliance, and management of vascular risk factors. Advised patient to seek ER care in case she experiences persistent exertional chest pain not relieved by rest. We will follow up in 1 month for a nurse visit for BP check followed by three-month office visit. In the interim, patient will call the office with any concerns or change in symptoms. This note was generated using voice recognition software. While every effort has been made to ensure accuracy and proper surgery consultant, there may be occasional errors that could affect the content or meaning of the described symptoms. Orders: Orders CA echo transthoracic complete Today I10 - Essential (primary) hypertension, R07.9 - Chest pain, unspecified Basic Metabolic Panel Today I10 - Essential (primary) hypertension Liver Panel 1 Month I10 - Essential (primary) hypertension, R07.9 - Chest pain, unspecified CA lexiscan stress w iron Today R07.9 - Chest pain, unspecified NM cardiolite stress test Today I10 - Essential (primary) hypertension, R07.9 - Chest pain, unspecified Medications: New amlodipine-olmesartan 10-40 mg 1 tab PO DAILY 90 tabs 3RF Discontinued amiloride Discontinued Reason: Patient no longer taking 10 mg (2 x 5 mg) PO DAILY 30 tabs 0RF hydrochlorothiazide Discontinued Reason: Patient no longer taking 25 mg PO DAILY 30 tabs 0RF Coding Level of Care Code New Pt Level 4 (31585) Complex EM visit Add On G2211 Diagnoses Chest pain R07.9 Hypertension I10 Time Spent (min) 34 Comment Time spent in reviewing the chart, test results, assessment, counseling and documentation.
== END 2024-06-19 12:32 | disposition home or self-care (01) ==
LOC: HO.HCS 11:56
PROVIDERS: PCP Internal Medicine
DX: R07.9 Chest pain, unspecified (principal); I10 Essential (primary) hypertension
CPT/HCPCS: 99204

== ENCOUNTER → 2024-06-19 11:56 | Outpatient (BNVA) | payer MEDICAID, SELFPAY | PROVIDERS: PCP Internal Medicine | DX: I10 Essential (primary) hypertension (principal); R07.9 Chest pain, unspecified | CPT/HCPCS: 99212 ==

== ENCOUNTER → 2024-07-31 12:50 | Outpatient (REF) | payer MEDICAID, SELFPAY ==
--- NOTE | 2024-07-31 13:29 | CA_ITS ---
Transthoracic Echocardiogram Patient (Last, First, Middle): Yadi Elam, Gender: Female Date of : 1955 Age: 69 Procedure Date: 07/31/2024 Procedure Type: Transthoracic Echocardiogram Location: OP Height: 175.26 cm Weight: 66.68 kg BSA: 1.81 m2 Heart Rate: 70 bpm BP: 150 / 80 mmHg Skating Rink Manager: SB Referring MD: Tristan Ramirez FURNACE AND WASH EQUIPMENT OPERATOR Symptoms: R07.9 - Chest pain, unspecified Study Quality: Adequate ECG Rhythm: Sinus Conclusions: - The left ventricular systolic function is normal. The calculated ejection fraction is 67% by biplane method. - No obvious valvular pathology seen on this study. - Trivial to small pericardial effusion posterior to the left ventricle. Findings Left Ventricle Normal left ventricular cavity size. The left ventricular systolic function is normal. The calculated ejection fraction is 67% by biplane method. There is no evidence of regional wall motion abnormalities. Diastolic function is normal for age. There is mild septal asymmetric hypertrophy. LV peak GLS 21.3%. Right Ventricle Normal right ventricular cavity size and systolic function. Atria Both atria are normal in size. Aortic Valve There is a normal trileaflet aortic valve. There is no aortic valve stenosis. There is no aortic valve regurgitation. Mitral Valve The mitral valve appears normal. There is trace mitral valve regurgitation. There is no mitral valve stenosis. Pulmonic Valve The pulmonic valve is likely normal. Tricuspid Valve There is mild tricuspid valve regurgitation. There is no evidence of pulmonary hypertension. Great Vessels The asc aorta is normal in size. Venous The inferior vena cava is normal in size and collapses greater than 50% with inspiration. Pericardium/Pleural Trivial to small pericardial effusion posterior to the left ventricle. Prior Study Comparison No prior study available for comparison. Recommendations, Care & Conclusions No obvious valvular pathology seen on this study. Measurements 2D Linear Measurements IVSd: 1.11 0.6-0.9/0.6-1.0 cm LVIDd: 4.30 3.9-5.3/4.2-5.9 cm LVIDd Index: 2.38 2.4-3.2/2.2-3.1 cm/m2 LVIDs: 2.51 2.0-3.6 cm LVPWd: 1.04 0.7-1.1 cm LA Diam: 3.70 2.7-3.8/3.0-4.0 cm LAIDs Index: 2.04 1.5-2.3 cm/m2 LV Mass: 196.38 67-162/88-224 g LV Mass Index: 108.50 43-95/49-115 g/m2 LVOT Diam: 2.00 3.0+(-)1.3 cm 2D Systolic Function EF 4C: 66.10 >55% EF 2C: 67.40 >55% EF BiP: 66.60 >55% Mitral Valve MV Pk E: 0.80 MV PK A: 0.57 MV Decel Time: 218.00 E/A: 1.40 E'Lateral: 6.74 E'Medial: 6.31 E/E' Med: 12.70 E/E' Lat: 11.90 PHT: 64.00 MVA PHT: 3.44 Decel [place]: 3.67 Aortic Valve AoV Pk [place]: 1.38 AoV Pk Grad: 8.00 [place]: 2.82 LVOT LVOT Pk [place]: 1.18 LVOT Mn [place]: 0.84 LVOT VTI: 0.26 LVOT Pk Grad: 6.00 LVOT Mn Grad: 3.00 LVOT Diam: 2.00 LVOT Area: 3.14 Diastolic Function MV Pk E: 0.80 MV Pk A: 0.57 E/A: 1.40 E'Medial: 6.31 E/E' Med: 12.70 E' Laterial: 6.74 E/E' Lat: 11.90 Right Ventricle TAPSE (mm): 21.20 TVS' Tyler: 12.40 Tricuspid Valve TR Pk [place]: 2.67 TR Pk Grad: 29.00 RA Press: 3.00 RVSP: 32.00 Great Vessels Aorta Sinus of Valsalva: 2.80 2.0-3.5 cm Ao Asc: 3.30 2.1-3.4 cm Pulmonary Valve PV Pk Tyler: 0.73 Peak PV Grad: 2.00 Updated in Other Vendor System with Status of Final Fernando Damon MD electronically signed on 08/01/2024 4:05:01 PM with status of Final
== END ==
LOC: HO.CARD 12:50
PROVIDERS: PCP Internal Medicine
DX: R07.9 Chest pain, unspecified (principal); I10 Essential (primary) hypertension
CPT/HCPCS: 93306

== ENCOUNTER → 2024-07-31 13:29 | Outpatient (BNV) | payer MEDICAID, SELFPAY | PROVIDERS: PCP Internal Medicine; Visit Provider Internal Medicine | DX: I42.2 Other hypertrophic cardiomyopathy (principal); I31.39 Other pericardial effusion (noninflammatory); I36.1 Nonrheumatic tricuspid (valve) insufficiency | CPT/HCPCS: 93306; 93356 ==

== ENCOUNTER 2024-08-14 12:14 | Outpatient (REF) | payer MEDICAID, SELFPAY ==
[2024-08-14 16:41] LABS: Alanine Aminotransferase 25 U/L (0-31); Albumin Level 4.6 g/dL (3.5-5.0); Alkaline Phosphatase 106 U/L (39-117); Anion Gap 11 (12-20); Aspartate Amino Transferase 27 U/L (5-31); Blood Urea Nitrogen 14 mg/dL (9-16); Calcium 9.5 mg/dL (8.4-10.2); Carbon Dioxide 27 mmol/L (22-29); Chloride 107 mmol/L (96-108); Estimated Glomerular Filt Rate > 60; Sodium 142 mmol/L (135-145); Total Protein 7.7 g/dL (6.5-8.0)
[2024-08-14 16:43] LABS: Potassium 2.9 mmol/L (3.3-5.1)
== END 2024-08-14 12:15 | disposition home or self-care (01) ==
LOC: HO.HHCL 12:14
PROVIDERS: PCP Internal Medicine; Visit Provider Internal Medicine
DX: I12.9 Hypertensive chronic kidney disease with stage 1 through stage 4 chronic kidney disease, or unspecified chronic kidney disease (principal); N18.4 Chronic kidney disease, stage 4 (severe); R07.9 Chest pain, unspecified
CPT/HCPCS: 36415; 80048; 80076

== ENCOUNTER 2024-09-26 12:21 | Outpatient (REF) | payer MEDICAID, SELFPAY ==
[2024-09-26 13:34] LABS: Potassium 3.4 mmol/L (3.3-5.1)
[2024-09-26 13:37] LABS: Anion Gap 13 (12-20); Blood Urea Nitrogen 12 mg/dL (9-16); Calcium 9.4 mg/dL (8.4-10.2); Carbon Dioxide 25 mmol/L (22-29); Chloride 104 mmol/L (96-108); Estimated Glomerular Filt Rate > 60; Potassium 3.7 mmol/L (3.3-5.1); Sodium 138 mmol/L (135-145)
== END 2024-09-26 12:22 | disposition home or self-care (01) ==
LOC: HO.HHCL 12:21
PROVIDERS: PCP Internal Medicine; Visit Provider Internal Medicine
DX: Z11.59 Encounter for screening for other viral diseases (principal); E87.6 Hypokalemia; R76.8 Other specified abnormal immunological findings in serum
CPT/HCPCS: 36415; 80048; 84132; 86692

== ENCOUNTER 2024-09-28 15:13 | Emergency (ER) | payer MEDICAID, SELFPAY ==
--- NOTE | ~2024-09-28 | XR_ITS ---
CLINICAL HISTORY: dizziness 2 view chest x-ray. Comparison: None Findings: No pleural fluid. Heart size normal No acute fracture. Impression: Lungs are clear. No consolidations. This document has been electronically signed by: Roni Rsoenthal MD on 09/28/2024 17:04:01
--- NOTE | ~2024-09-28 | CT_ITS ---
CLINICAL HISTORY: ams CT Head Without Contrast: Comparison: None Findings: Cortical sulci are symmetric. The ventricles are symmetric. There are a few scattered periventricular focal areas of white matter degeneration due to micro angiopathy. Basal ganglia are unremarkable No shift in midline structures No intraparenchymal bleeding or abnormal extra axial blood fluid collections Normal pituitary size Clear paranasal sinuses Unremarkable orbital structures No depressed fractures Impression: Unremarkable CT of the head, no signs of acute trauma This document has been electronically signed by: Roni Rosenthal MD on 09/28/2024 18:21:25
--- NOTE | ~2024-09-28 | CT_ITS ---
CLINICAL HISTORY: abdominal pain, elevated bili and lipase Exam: CT Abdomen and Pelvis With IV Contrast Comparison: None. Findings: The liver density is homogeneous No biliary abnormalities. The gallbladder is normal in size The portal vein is normal. The spleen is normal in size No pancreatic ductal dilatation No hydronephrosis Normal bowel caliber. No abdominal wall hernias. No secondary signs of acute appendicitis No free fluid/free air No vascular abnormalities. Superior mesenteric vein is unremarkable. The celiac and superior mesenteric arteries are unremarkable. Small and large bowel branches are perfused. Inferior mesenteric artery is perfused Bladder outline is smooth. The uterus is normal in size. No suspicious skeletal lesions Impression : The pancreas is normal in size. No CT evidence of pancreas ductal dilatation. Consider nonurgent MRCP. This document has been electronically signed by: Roni Rosenthal MD on 09/28/2024 18:09:51
[2024-09-28 15:16] VITALS: BP 133/65; PULSE 83; RESP 20; TEMP 38.5; O2SAT 95; BMI 21.2
--- NOTE | 2024-09-28 15:16 | ED.GENADULT ---
HPI - General Adult General Chief complaint: General Medical Stated complaint: weakness, feeling cold/headache Time Seen by Provider: 09/28/24 16:01 Source: family Mode of arrival: ambulatory Limitations: language barrier History of Present Illness ED Provider: Dr. Singleton [facility] narrative: This is a 69-year-old female history of hypertension and diabetes presented hospital today for evaluation of dizziness and 6 weeks of fever. Patient describes this dizziness as a lightheadedness and weakness. Patient has difficulty moving due to her weakness. Patient's son was present at bedside. I attempted to obtain a electromedical equipment repairer via tablet for language RACHID however this was unavailable to me as the service did not have any design drafter chief. Patient does give me permission to use her son as design drafter chief. Her son stated that he is visiting out of country. He noticed at her mom does not appear well. She is complaining of dizziness she is weaker. She has also been complaining of fever for 6 weeks. He mentioned that she was evaluated by a primary care doctor were did get lab work. She was placed on potassium pill for hypokalemia. Patient is not complaining of coughing shortness of breath, she does endorse chronic neck pain. This is her baseline, denies any pain in her chest or abdomen. Denies any abnormality in her urinary symptoms. Related Data Home Medications ?Medication ?Instructions ?Recorded ?Confirmed atorvastatin 20 mg tablet 20 mg PO DAILY 06/19/24 06/19/24 carvedilol 6.25 mg tablet 6.25 mg PO BID 06/19/24 06/19/24 Previous Rx's ?Medication ?Instructions ?Recorded amlodipine 10 mg-olmesartan 40 mg 1 tab PO DAILY #90 tabs 06/19/24 tablet potassium chloride 20 mEq 40 meq (2 x 20 mEq) PO BID #30 tabs 08/19/24 tablet,extended release (K-Tab) Allergies Allergy/AdvReac Type Severity Reaction Status Date / Time No Known Allergies Allergy Verified 09/28/24 15:18 Review of Systems Review of Systems: Pertinent review of systems as mentioned in HPI. All other system otherwise negative. REPLACED BY [facility] Past Medical History REPLACED BY [facility] Narrative: Medical history as mentioned in [facility] Social History Social History Advance Directives: No Advance Directives Information Provided: No Physical Exam ED Exam Exam: General: Pleasant, no distress, interacting appropriately Head: Normacephalic, atraumatic ENT: oral mucosa moist, neck supple, no tracheal deviation Cardiovascular: regular rate, regular rhythm, no murmurs, rubbing, gallops Respiratory: CTAB, no wheeze, rales, rhonchi Gastrointestinal: Soft, non distended, non tender, non guarding Extremities: No limb pain or swelling, no calf tenderness, no wounds on feet Neurological: Awake and alert, no facial droop noted Skin: Warm and dry Psychiatric: Appropriate mood and thoughts Vital Signs: Vital Signs - 24 hr 09/28/24 15:16 09/28/24 16:43 Temperature 101.3 F H 100.4 F Pulse Rate 83 Respiratory Rate 20 Blood Pressure 133/65 Pulse Oximetry 95 Oxygen Delivery Method Room Air BMI result Body Mass Index 21.2 Course Course Course Narrative: This is a Rapid Medical Examination (RME) performed by Marissa Fontenot PA-C in triage. Full HPI, ROS, assessment and treatment plan per primary provider in the Main ED. Hx: 69 yo Rachid speaking F (here w/ son to translate) hx of hypokalemia, HTN, HIV currently viral load undetectable here w/ family for eval of BRADSHAW, dizziness, chills x4 weeks. son reports she has been desatting with O2 levels 89-90% on RA at home - no hx asthma/ COPD. no travel outside [place] PE/vitals: O2 sat 94% on RA at rest. Plan: labs, viral swabs, UA, ekg Medications Administered Discontinued Medications Generic Name Dose Route Start Last Admin Trade Name Freq PRN Reason Stop Dose Admin Acetaminophen 975 mg 09/28/24 15:21 09/28/24 15:40 Acetaminophen 325 Mg Tablet PO 09/28/24 15:22 975 mg ONCE ONE Administration Sodium Chloride 1,000 mls @ 999 mls/hr 09/28/24 16:45 09/28/24 17:45 Ns IV 09/28/24 17:45 Infused .Q1H1M KATHERYN Infusion Iohexol 100 ml 09/28/24 17:29 09/28/24 17:29 Iohexol 350 Mg/Ml 100 Ml Infus..Btl IV 09/28/24 17:30 85 ml ONCE ONE Administration Medical Decision Making Medical Decision Making [facility] Narrative: 69-year-old female history of hypertension and diabetes presented hospital today for evaluation of 6 weeks of fever headache dizziness. On exam patient does not have an obvious source of infection. Patient we will obtain a viral swab here. Sudden noted that her O2 saturation was bouncing between 89-93. She is not coughing does not appear to be short of breath or tachypneic. However she is complaining of headaches. We will obtain CT head to evaluate for any intracranial cause of her headaches or dizziness. She has not complained of any vertiginous dizziness. She is complaining of more of a weakness and lightheadedness. IV fluid will be given to the patient at this time for support. We will obtain broad laboratory workup. Including a blood smear. We will obtain a CT abdomen and pelvis. Coronal patient's lab work patient does have climbing bilirubin previous bilirubin was 1.3. Today it is 2.2. Patient does not have any signs of Galvan's sign or right upper quadrant tenderness on palpation. Certainly neoplasm of the pancreas or gallbladder is on my differential as well. Patient's CT head is negative, CT abdomen and pelvis is negative. Patient chemistries did show some slight hyperglycemia at 198. Patient does appear to be improved after IV fluid. UA did not show any signs of UTI At this time patient's symptom has improved after IV fluid hydration. I suspect patient likely has dehydration. She may have underlying viral infection. COVID flu and RSV swab is negative. Lactic acid is not elevated. I do not think this is sepsis. We will plan to discharge patient at this time continue conservative treatment. Differential Diagnosis Differential Diagnoses: The differential diagnosis associated with the presentation includes Intracranial bleed, electrolyte abnormality, viral syndrome, pneumonia, UTI, cholecystitis, neoplasm of the pancreas Lab Data MDM Lab Attestation statement: I reviewed the patient's lab results. 09/28/24 15:39 09/28/24 15:39 Labs: Lab Results 09/28/24 09/28/24 09/28/24 Range/Units 15:39 15:42 16:32 WBC 6.0 (4.8-10.8) X10*3/uL RBC 4.04 L (4.20-5.50) X10*6/uL Hgb 11.6 L (12.0-16.0) g/dl Hct 33.9 L (37.0-47.0) % MCV 83.9 (80.0-98.0) fL MCH 28.7 (27.0-33.0) pg MCHC 34.2 (31.0-35.0) g/dl RDW 12.3 (11.0-16.0) % Plt Count 161 (160-400) X10*3/uL MPV 10.8 (9.4-12.3) fL Immature Gran % (Auto) 0.2 (0.0-0.4) % Neut % (Auto) 41.0 L (45-73) % Lymph % (Auto) 42.7 H (20-40) % [place] % (Auto) 12.2 H (2-11) % Eos % (Auto) 3.7 (0-4) % Baso % (Auto) 0.2 (0-2) % Lymph # (Auto) 2.6 (1.2-4.9) X10*3/uL [place] # (Auto) 0.7 (0.1-1.2) X10*3/uL Eos # (Auto) 0.2 (0.0-0.4) X10*3/uL Baso # (Auto) 0.0 (0.0-0.2) X10*3/uL Abs Immat Gran (auto) 0.01 (0.00-0.03) X10*3/uL Absolute Neuts (auto) 2.5 (2.0-8.3) x10*3/uL Absolute Nucleated RBC 0.000 (0.0-0.012) X10*3/uL Nucleated RBC % (auto) 0.0 (0.0-0.2) /100WBC Sodium 135 (135-145) mmol/L Potassium 3.4 (3.3-5.1) mmol/L Chloride 100 (96-108) mmol/L Carbon Dioxide 26 (22-29) mmol/L Anion Gap 12 (12-20) BUN 13 (9-16) mg/dL Creatinine 0.91 (0.5-1.4) mg/dL Estim Creat Clear Calc 59.9 Estimated GFR > 60 Random Glucose 198 H (60-115) mg/dL Lactic Acid 1.8 (0.5-2.0) mmol/L Calcium 9.0 (8.4-10.2) mg/dL Magnesium 1.7 (1.6-2.6) mg/dL Total Bilirubin 2.2 H (0.0-1.0) mg/dL AST 30 (5-31) U/L ALT 26 (0-31) U/L Alkaline Phosphatase 79 (39-117) U/L Troponin I High Sens 5.4 D (<3.5-17.0) ng/L Total Protein 7.2 (6.5-8.0) g/dL Albumin 4.3 (3.5-5.0) g/dL Lipase 79 H (8-78) U/L Hold Yellow Top Urine Color Urine Appearance Urine pH (5.0-9.0) Ur Specific [place] (1.005-1.025) Urine Protein (Neg-Trace) mg/dL Urine Glucose (UA) (Negative) mg/dL Urine Ketones (Negative) mg/dL Urine Blood (Negative) Urine Nitrite (Negative) Ur Leukocyte Esterase (Negative) Urine RBC (0-2) /HPF Urine WBC (0-5) /HPF Ur Squamous Epith Cells (0-2) /HPF Urine Bacteria (None Seen) Hyaline Casts (0-2) /LPF Influenza Type A (PCR) NEGATIVE (Negative) Influenza Type B (PCR) NEGATIVE (Negative) RSV RNA Qual (PCR) NEGATIVE (Negative) SARS-CoV-2 RNA (RT-PCR) NEGATIVE (Negative) 09/28/24 09/28/24 Range/Units 17:38 Unknown WBC (4.8-10.8) X10*3/uL RBC (4.20-5.50) X10*6/uL Hgb (12.0-16.0) g/dl Hct (37.0-47.0) % MCV (80.0-98.0) fL MCH (27.0-33.0) pg MCHC (31.0-35.0) g/dl RDW (11.0-16.0) % Plt Count (160-400) X10*3/uL MPV (9.4-12.3) fL Immature Gran % (Auto) (0.0-0.4) % Neut % (Auto) (45-73) % Lymph % (Auto) (20-40) % Sterling % (Auto) (2-11) % Eos % (Auto) (0-4) % Baso % (Auto) (0-2) % Lymph # (Auto) (1.2-4.9) X10*3/uL [place] # (Auto) (0.1-1.2) X10*3/uL Eos # (Auto) (0.0-0.4) X10*3/uL Baso # (Auto) (0.0-0.2) X10*3/uL Abs Immat Gran (auto) (0.00-0.03) X10*3/uL Absolute Neuts (auto) (2.0-8.3) x10*3/uL Absolute Nucleated RBC (0.0-0.012) X10*3/uL Nucleated RBC % (auto) (0.0-0.2) /100WBC Sodium (135-145) mmol/L Potassium (3.3-5.1) mmol/L Chloride (96-108) mmol/L Carbon Dioxide (22-29) mmol/L Anion Gap (12-20) BUN (9-16) mg/dL Creatinine (0.5-1.4) mg/dL Estim Creat Clear Calc Estimated GFR Random Glucose (60-115) mg/dL Lactic Acid (0.5-2.0) mmol/L Calcium (8.4-10.2) mg/dL Magnesium (1.6-2.6) mg/dL Total Bilirubin (0.0-1.0) mg/dL AST (5-31) U/L ALT (0-31) U/L Alkaline Phosphatase (39-117) U/L Troponin I High Sens (<3.5-17.0) ng/L Total Protein (6.5-8.0) g/dL Albumin (3.5-5.0) g/dL Lipase (8-78) U/L Hold Yellow Top See Note Urine Color Yellow Urine Appearance Clear Urine pH 7.5 (5.0-9.0) Ur Specific [place] 1.015 (1.005-1.025) Urine Protein Negative (Neg-Trace) mg/dL Urine Glucose (UA) Negative (Negative) mg/dL Urine Ketones Negative (Negative) mg/dL Urine Blood Trace H (Negative) Urine Nitrite Negative (Negative) Ur Leukocyte Esterase Negative (Negative) Urine RBC 0-2 (0-2) /HPF Urine WBC 0-5 (0-5) /HPF Ur Squamous Epith Cells 0-2 (0-2) /HPF Urine Bacteria None Seen (None Seen) Hyaline Casts 0-2 (0-2) /LPF Influenza Type A (PCR) (Negative) Influenza Type B (PCR) (Negative) RSV RNA Qual (PCR) (Negative) SARS-CoV-2 RNA (RT-PCR) (Negative) Independent Interpretation I performed an independent interpretation of an: Plain X-Ray and CT Scan Radiology Impression Discussion of test interpretation with radiology: I have reviewed the radiologist's reading. Discharge Plan Discharge Clinical Impression: Dehydration Patient Disposition: Home, Self-Care Additional Instructions: Continue conservative treatment she may take tylenol 1000mg every 8 hours for her fever as needed. IF she does not appear well please bring her back to the ED. Make sure she stay hydrated. Prescriptions: No Action potassium chloride [K-Tab] 20 mEq tablet extended release 40 meq PO BID Qty: 30 0RF atorvastatin 20 mg tablet 20 mg PO DAILY carvedilol 6.25 mg tablet 6.25 mg PO BID amlodipine-olmesartan 10-40 mg tablet 1 tab PO DAILY Qty: 90 3RF Print Language: Other
--- NOTE | 2024-09-28 15:19 | ECG_ITS ---
Test Reason : DIZZINESS Blood Pressure : */* mmHG Vent. Rate : 81 BPM Atrial Rate : 81 BPM P-R Int : 188 ms QRS Dur : 78 ms QT Int : 342 ms P-R-T Axes : 61 -18 26 degrees QTcB Int : 397 ms Normal sinus rhythm T wave abnormality, consider anterior ischemia Abnormal ECG When compared with ECG of 12-Jun-2023 13:56, Nonspecific T wave abnormality has replaced inverted T waves in Inferior leads Referred By: Fina Fontenot Electronically Signed By: BASIM GARZA
[2024-09-28 15:50] LABS: MANUAL DIFF FLAG NO
[2024-09-28 15:56] LABS: Hematocrit 33.9 % (37.0-47.0); Hemoglobin 11.6 g/dl (12.0-16.0); Imm Gran Abs Auto 0.01 X10*3/uL (0.00-0.03); Imm Gran Pct Auto 0.2 % (0.0-0.4); Lymphocytes Absolute Auto 2.6 X10*3/uL (1.2-4.9); Mean Corpuscular HGB Conc 34.2 g/dl (31.0-35.0); Mean Corpuscular Hemoglobin 28.7 pg (27.0-33.0); Mean Corpuscular Volume 83.9 fL (80.0-98.0); NRBC Abs Auto 0.000 X10*3/uL (0.0-0.012); NRBC Pct Auto 0.0 /100WBC (0.0-0.2); Platelet Count 161 X10*3/uL (160-400); Red Blood Count 4.04 X10*6/uL (4.20-5.50); White Blood Count 6.0 X10*3/uL (4.8-10.8)
[2024-09-28 16:10] LABS: Alanine Aminotransferase 26 U/L (0-31); Albumin Level 4.3 g/dL (3.5-5.0); Alkaline Phosphatase 79 U/L (39-117); Anion Gap 12 (12-20); Aspartate Amino Transferase 30 U/L (5-31); Blood Urea Nitrogen 13 mg/dL (9-16); Calcium 9.0 mg/dL (8.4-10.2); Carbon Dioxide 26 mmol/L (22-29); Chloride 100 mmol/L (96-108); Creatinine Clr Calc Pharmacy 59.9; Estimated Glomerular Filt Rate > 60; Lipase 79 U/L (8-78); Magnesium 1.7 mg/dL (1.6-2.6); Potassium 3.4 mmol/L (3.3-5.1); Sodium 135 mmol/L (135-145); Total Protein 7.2 g/dL (6.5-8.0)
[2024-09-28 16:14] LABS: Troponin-I High Sensitivity 5.4 ng/L (<3.5-17.0)
[2024-09-28 16:43] VITALS: TEMP 38
[2024-09-28 17:24] LABS: Resp Syncy Virus RNA Qual PCR NEGATIVE (Negative); SARS COV2 PCR INHOUSE NEGATIVE (Negative)
[2024-09-28] MEDS: iohexoL 350 MG/ML 100 ML INFUS..BTL IV (17:29)
[2024-09-28 17:47] LABS: Appearance Urine Clear; Glucose Urine UA Negative (Negative); PH 7.5 (5.0-9.0); Specific Gravity - Urine 1.015 (1.005-1.025); UMIC TRIGGER UACC YES
[2024-09-28 18:45] LABS: Glucose, Whole Blood 147 mg/dL (60-115)
--- NOTE | 2024-09-28 18:47 | PC.NURSE ---
Ambulated pt to bathroom, steady gait. Denies dizziness or lightheadedness with ambulation
[2024-09-28 18:59] VITALS: BP 133/70; PULSE 71; RESP 19; TEMP 37.2; O2SAT 96
[2024-10-02 14:33] LABS: HIV RNA PCR Qn Copies 13900 copies/mL (NOT DETECTED); HIV RNA PCR Qn Log Copies 4.14 (NOT DETECTED)
== END 2024-09-28 19:00 | disposition home or self-care (01) ==
PROVIDERS: Physician Assistant Medical; Emergency Provider Student in an Organized Health Care Education/Training Program; PCP Internal Medicine
DX: E86.0 Dehydration (principal); R53.1 Weakness; R51.9 Headache, unspecified; R06.02 Shortness of breath; R41.82 Altered mental status, unspecified; M54.2 Cervicalgia; R94.31 Abnormal electrocardiogram [ECG] [EKG]; R10.2 Pelvic and perineal pain; Z79.899 Other long term (current) drug therapy; Z03.818 Encounter for observation for suspected exposure to other biological agents ruled out
CPT/HCPCS: 36415; 70450; 71046; 74177; 80053; 81001; 82947; 83605; 83690; 83735; 84484; 85025; 87040; 87536; 87637; 93005; 99284; 99285; Q9967

== ENCOUNTER → 2024-09-28 15:19 | Outpatient (BNV) | payer MEDICAID, SELFPAY | PROVIDERS: Emergency Provider Student in an Organized Health Care Education/Training Program; PCP Internal Medicine; Visit Provider Internal Medicine | DX: R94.31 Abnormal electrocardiogram [ECG] [EKG] (principal); R42 Dizziness and giddiness | CPT/HCPCS: 93010 ==

== ENCOUNTER → 2024-09-28 15:19 | Outpatient (BNV) | payer MEDICAID, SELFPAY | PROVIDERS: Emergency Provider Student in an Organized Health Care Education/Training Program; PCP Internal Medicine; Visit Provider Radiology Diagnostic Radiology | DX: R79.89 Other specified abnormal findings of blood chemistry (principal); R41.82 Altered mental status, unspecified; R42 Dizziness and giddiness | CPT/HCPCS: 70450; 71046; 74177 ==

== ENCOUNTER 2024-10-18 15:28 | Outpatient (REF) | payer MEDICAID, SELFPAY ==
[2024-10-18 16:06] LABS: MANUAL DIFF FLAG NO
[2024-10-18 16:15] LABS: Hematocrit 38.2 % (37.0-47.0); Hemoglobin 12.6 g/dl (12.0-16.0); Imm Gran Abs Auto 0.01 X10*3/uL (0.00-0.03); Imm Gran Pct Auto 0.2 % (0.0-0.4); Lymphocytes Absolute Auto 2.0 X10*3/uL (1.2-4.9); Mean Corpuscular HGB Conc 33.0 g/dl (31.0-35.0); Mean Corpuscular Hemoglobin 28.8 pg (27.0-33.0); Mean Corpuscular Volume 87.2 fL (80.0-98.0); NRBC Abs Auto 0.000 X10*3/uL (0.0-0.012); NRBC Pct Auto 0.0 /100WBC (0.0-0.2); Platelet Count 208 X10*3/uL (160-400); Red Blood Count 4.38 X10*6/uL (4.20-5.50); White Blood Count 4.9 X10*3/uL (4.8-10.8)
[2024-10-18 16:42] LABS: Alanine Aminotransferase 26 U/L (0-31); Albumin Level 4.6 g/dL (3.5-5.0); Alkaline Phosphatase 85 U/L (39-117); Anion Gap 9 (12-20); Aspartate Amino Transferase 21 U/L (5-31); Blood Urea Nitrogen 12 mg/dL (9-16); Calcium 9.3 mg/dL (8.4-10.2); Carbon Dioxide 28 mmol/L (22-29); Chloride 101 mmol/L (96-108); Estimated Glomerular Filt Rate > 60; Iron 51 mcg/dL (30-160); Percent Iron Saturation 22 % (15-50); Potassium 4.2 mmol/L (3.3-5.1); Sodium 134 mmol/L (135-145); Total Iron Binding Capacity 229 mcg/dL (228-428); Total Protein 7.9 g/dL (6.5-8.0); Unsaturated Iron Binding 178 ug/dL
[2024-10-18 17:00] LABS: Ferritin 106 ng/mL (10-250)
[2024-10-19 09:10] LABS: Chlamydia pneumoniae PCR Not Detected (Not Detect.); Coronavirus 229E PCR Not Detected (Not Detect.); Coronavirus HKU1 PCR Not Detected (Not Detect.); Coronavirus NL63 PCR Not Detected (Not Detect.); Coronavirus OC43 PCR Not Detected (Not Detect.); RSV PCR Not Detected (Not Detect.); Rhino/Enterovirus PCR Not Detected (Not Detect.)
[2024-10-19 09:30] LABS: Influenza A H1 PCR Not Detected (Not Detect.); Influenza A H1-2009 PCR Not Detected (Not Detect.); Influenza A H3 PCR Not Detected (Not Detect.); SARS-CoV-2 PCR Not Detected (Not Detect.)
[2024-10-19 10:28] LABS: Lyme Abs Screen <0.90 index
[2024-10-19 16:33] LABS: HIV RNA PCR Qn Copies 4660 copies/mL (NOT DETECTED); HIV RNA PCR Qn Log Copies 3.67 (NOT DETECTED)
[2024-10-21 12:38] LABS: A. Phagocytphilium DNA,RT-PCR NOT DETECTED (NOT DETECTED); Babesia Microti DNA, RT-PCR NOT DETECTED (NOT DETECTED); Borrelia Miyamotoi,DNA RT-PCR NOT DETECTED (NOT DETECTED); E.Chaffeensis DNA RT-PCR NOT DETECTED (NOT DETECTED); Lyme(Borrelia ssp)DNA RT-PCR NOT DETECTED (NOT DETECTED)
[2024-10-23 15:14] LABS: Absolute CD3 Count 1864 cells/uL (840-3060); Absolute CD8 Count 1210 cells/uL (180-1170); Percent CD3 Cells 77 % (57-85); Percent CD8 Cells 50 % (12-42)
== END 2024-10-18 15:29 | disposition home or self-care (01) ==
LOC: HO.HHCL 15:28
PROVIDERS: PCP Internal Medicine; Referring Provider Registered Nurse; Visit Provider Internal Medicine
DX: Z01.84 Encounter for antibody response examination (principal); Z11.4 Encounter for screening for human immunodeficiency virus [HIV]; R53.83 Other fatigue; R53.81 Other malaise; Z21 Asymptomatic human immunodeficiency virus [HIV] infection status
CPT/HCPCS: 36415; 80053; 82728; 83540; 85025; 86359; 86360; 86617; 86618; 87468; 87469; 87478; 87484; 87536; 87633; 87798

== ENCOUNTER 2024-12-13 13:54 | Outpatient (AMB) | payer MEDICAID, SELFPAY ==
[2024-12-13 13:58] VITALS: BP 140/78; PULSE 62; O2SAT 100; BMI 21.9
--- NOTE | 2024-12-13 13:58 | HO.NEPHOV ---
Vital Signs 12/13/24 13:58 Height 5 ft 9 in Weight 148 lb BMI 21.9 BP 140/78 H Blood Pressure Location Lt brachial Position Sitting Pulse 62 Pulse Source Pulse Oximeter Pulse Oximetry (%) 100 Oxygen Delivery Method Room Air Intake Visit Reasons: ENP: Hypokalemia, Resistant Hypert, conf. Plastics Spreading Machine Operator Required: No Plastics Spreading Machine Operator Services: Plastics Spreading Machine Operator Offered & Declined (Son will translate ) Accompanied by: Family/Other Allergies No Known Allergies Allergy (Verified 09/28/24 15:18) Medication List - Last Reconciled 12/13/24 by Elias Soares MD amlodipine-olmesartan 10-40 mg 1 tab PO DAILY atorvastatin 20 mg PO DAILY carvedilol 6.25 mg PO BID potassium chloride ER (K-Tab) 40 mEq (2 x 20 mEq) PO BID HPI Comments Details: The patient is a 69-year-old woman from [place] presenting with elevated blood pressure and low potassium levels. Her son Oumar was present on the phone for translation. She was accompanied by her [id number] She has a history of hypertension for over 40 years, which has been challenging to control despite being on three different antihypertensive medications. T he blood pressure occasionally spikes to 147-150 mmHg, causing headaches. The low potassium levels have been a concern, and currently on 40 mEq of potassium supplementation The patient is originally from [place] and has been in the current location for almost three years, and there was a change in her medication regimen during this time, which may have contributed to the current issues. [facility] Medical History (Updated 11/21/24 @ 11:55 by BRENNEN Domínguez) Chronic nonintractable headache Resistant hypertension Hepatitis B History of stroke HIV (human immunodeficiency virus infection) Hypertension Review of Systems Const Denies fever(s) and Denies weight loss Card Denies chest pain Resp Denies cough and Denies hemoptysis GI Denies abdominal pain, Denies diarrhea and Denies nausea Musc Denies back pain Neuro Denies focal weakness Physical Exam Vital Signs: Last Vital Signs Pulse 62 12/13/24 13:58 BP 140/78 H 12/13/24 13:58 Pulse Ox 100 12/13/24 13:58 Oxygen Delivery Method Room Air 12/13/24 13:58 BMI result Body Mass Index 21.9 Comfortable Neck supple no JVD. Lungs entry equal no rales. Heart S1-S2 heard no gallop or rub. Abdomen soft nontender. Neuro alert awake oriented. No asterixis. Extremities no edema. Results Reviewed Nephrology Results: Hgb, (12.0-16.0) 12.6 g/dl 10/18/24 WBC, (4.8-10.8) 4.9 X10*3/uL 10/18/24 Plt Count, (160-400) 208 X10*3/uL Δ 10/18/24 Sodium, (135-145) 134 mmol/L L 10/18/24 Potassium, (3.3-5.1) 4.2 mmol/L Δ 10/18/24 Chloride, (96-108) 101 mmol/L 10/18/24 Carbon Dioxide, (22-29) 28 mmol/L 10/18/24 BUN, (9-16) 12 mg/dL 10/18/24 Creatinine, (0.5-1.4) 0.87 mg/dL 10/18/24 Calcium, (8.4-10.2) 9.3 mg/dL 10/18/24 Urine Protein, (Neg-Trace) Negative mg/dL 09/28/24 Assessment & Plan Assessment & Plan (1) Hypertension: Code(s): I10 - Essential (primary) hypertension Category: Medical (2) Hypokalemia: Code(s): E87.6 - Hypokalemia Category: Medical Plan 69-year-old woman with longstanding history of hypertension along with hypokalemia. She has had alkalosis with hypokalemia for quite some time this raises the suspicion for hyperaldosteronism. Primary versus secondary. I will initiate a workup. Check plasma aldosterone and plasma renin activity. After screening tests we might have to discontinue both olmesartan and potassium supplementation and repeat the test. Hypokalemia - Suspected secondary to hyperaldosteronism; Continue potassium supplementation for now Orders: Orders Renin Today E87.6 - Hypokalemia, I10 - Essential (primary) hypertension Basic Metabolic Panel Today E87.6 - Hypokalemia, I10 - Essential (primary) hypertension Aldost/Renin Today E87.6 - Hypokalemia, I10 - Essential (primary) hypertension Aldosterone Today E87.6 - Hypokalemia, I10 - Essential (primary) hypertension Coding Level of Care Code New Pt Level 4 (75901) Diagnoses Hypertension I10 Hypokalemia E87.6
== END 2024-12-13 14:16 | disposition home or self-care (01) ==
LOC: HO.HKA 13:55
PROVIDERS: PCP Internal Medicine; Referring Provider Internal Medicine; Visit Provider Internal Medicine Hypertension Specialist
DX: I10 Essential (primary) hypertension (principal); E87.6 Hypokalemia
CPT/HCPCS: 99204

== ENCOUNTER 2024-12-13 13:54 | Outpatient (REF) | payer MEDICAID, SELFPAY ==
[2024-12-13 16:39] LABS: Anion Gap 12 (12-20); Blood Urea Nitrogen 11 mg/dL (9-16); Calcium 9.4 mg/dL (8.4-10.2); Carbon Dioxide 29 mmol/L (22-29); Chloride 100 mmol/L (96-108); Estimated Glomerular Filt Rate 59; Potassium 3.5 mmol/L (3.3-5.1); Sodium 137 mmol/L (135-145)
[2024-12-29 15:43] LABS: Plasma Renin Activity 1.23 ng/mL/h (0.25-5.82)
== END 2024-12-13 13:55 | disposition home or self-care (01) ==
LOC: HO.LAB 13:54
PROVIDERS: PCP Internal Medicine; Referring Provider Internal Medicine; Visit Provider Internal Medicine Hypertension Specialist
DX: E87.6 Hypokalemia (principal); I10 Essential (primary) hypertension; Z79.899 Other long term (current) drug therapy
CPT/HCPCS: 36415; 80048; 82088; 84244; 99202

== ENCOUNTER 2025-01-28 10:43 | Outpatient (REF) | payer MEDICAID, SELFPAY ==
--- OUTSIDE RECORDS SUMMARY | 2025-01-28 12:03 | XMS_ITS | Clinical Summary ---
Author Organization [facility] Address [address] [place] [address] [address] [phone] Phone Care Team Providers Care Pallet Assembler Name Role Phone Mariaa Stevenson MD Primary Care Provide r Medications potassium chloride (KLOR-CON M10) 10 MEQ CR tablet TAKE 1 TABLET (10 MEQ) BY MOUTH 2 TIMES DAILY FOR 10 DAYS. DO NOT CRUSH OR CHEW. 4 Active potassium chloride (KLOR-CON M20) 20 MEQ CR tablet 5 Active metoprolol succinate XL (TOPROL XL) 25 MG 24 hr tablet Take 25 mg by mouth in the morning. Active metFORMIN XR (GLUCOPHAGE-XR) 500 MG 24 hr tablet TAKE 1 TABLET (500 MG) BY MOUTH WITH BREAKFAST. DO NOT CRUSH, CHEW, OR SPLIT. 5 Active fluticasone (FLONASE) 50 MCG/ACT nasal spray SHAKE LIQUID AND USE 1 SPRAY IN EACH NOSTRIL DAILY 5 Active Dovato 50-300 MG tablet Take 1 tablet by mouth 1 (one) time each day 5 Active carvedilol (COREG) 6.25 MG tablet TAKE 1 TABLET BY MOUTH WITH BREAKFAST AND EVENING MEAL 5 Active amLODIPine-olme sartan (ADILIA) 5-20 MG per tablet Take 1 tablet by mouth 1 (one) time each day 4 Active Acetaminophen Extra Strength 500 MG tablet TAKE 1 TABLET BY MOUTH EVERY 6 HOURS NEEDED FOR MILD PAIN 5 Active Active Problems Problem Noted Date Diagnosed Date Headache 02/13/2024 Type B viral hepatitis 07/13/2023 Overview (04/29/2024): Positive core Continue TDF and emtricitibine (Truvada) with Tivicay when starts new med Hypokalemia 07/01/2023 History of cerebrovascular accident 06/16/2023 Overview (04/29/2024): Residual speech and swallowing difficulty Hypertension 06/16/2023 Human immunodeficiency virus infection Social History Tobacco Use Types Packs/Day Years Used Date Smoking Tobacco: Never Assessed Comments Unknown Sex and Gender Information Value Date Recorded Sex Assigned at Not on file Legal Sex Female 2:57 PM EST Gender Identity Not on file Sexual Orientation Not on file Plan of Treatment Upcoming Encounters Date Type Department Care Team (Late st Contact Info) Description 03/03/2025 2:30 PM EST Office Visit [facility] [address] [place] [phone] Roni Guerra MD [id number] [facility] [address] [place] [phone] Health Maintenance Due Date Last Done Comments Breast Cancer Screening 1955 Pneumococcal Vaccine: 50+ Ye ars (1 of 2 - PCV) 07/22/1974 Colorectal Cancer Screening: Annual FOBT 07/22/2004 Colorectal Cancer Screening: Colonoscopy 07/22/2004 Colorectal Cancer Screening: Sigmoidoscopy 07/22/2004 Diabetes: Hemoglobin A1C 04/29/2024 01/18/2024 Diabetes: Pedal Pulse Checked 04/29/2024 Diabetes: Sensory Foot Exam 04/29/2024 Diabetes: Visual Foot Exam 04/29/2024 Diabetes: Ophthalmology Exam 10/05/2024 10/06/2023 Influenza Vaccine (#1) 2024 Hepatitis B Vaccine Aged Out 07/13/2023 No longe r eligible based on patient's age [place] [id number] Medicaid [place] Care Teams Pallet Assembler Relationship Specialty Start Date End Date Mariaa Stevenson MD [address] [place] [phone] PCP - General Internal Medicine 02/19/24
[2025-01-30 14:48] LABS: HIV RNA PCR Qn Copies 131 copies/mL (NOT DETECTED); HIV RNA PCR Qn Log Copies 2.12 (NOT DETECTED)
== END 2025-01-28 10:44 | disposition home or self-care (01) ==
LOC: HO.HHCL 10:43
PROVIDERS: Visit Provider Internal Medicine
DX: Z21 Asymptomatic human immunodeficiency virus [HIV] infection status (principal)
CPT/HCPCS: 36415; 87536